=== PATIENT | male | born 1985 | race Caucasian/White ===

== ENCOUNTER 2017-01-25 03:29 | Emergency (ER) | payer BC ==
--- OUTSIDE RECORDS SUMMARY | 2017-01-25 03:32 | XMS | Continuity of Care Document ---
:1985 Author Organization [facility] Care Team Providers Name Role Phone NOLOCAL, PRIMARY Primary Care Physician Unavailable Insurance Providers Payer Name Policy Number Subscriber Name Relationship [facility] [id number] KATHARINA BROTHERS SELF/SAME PATIENT Chief Complaint and Reason for Visit Reason for Visit SORES ON RT WRIST AND RT ADAMS Problems Active Medical Problems Problem Onset Date Recorded Date Status Diarrhea in adult patient Unknown 11/17/13 Active Gastroenteritis Unknown 11/17/13 Active Cellulitis of leg without foot, left Unknown 11/26/13 Active Burn Unknown 11/26/13 Active Sinusitis Unknown 09/10/14 Active Right ear pain Unknown 09/10/14 Active Cellulitis of leg, right Unknown 11/19/15 Active Impetigo Unknown 11/19/15 Active Medications Current Home Medications Medication Dose Units Route Directions Days/Qty Instructions Start Date ACETAMINOPHEN 1 TAB PO EVERY EIGHT 20 11/19/15 W/CODEINE #3 HOURS (TYLENOL #3) 300 NEEDED PRN MG/30 MG TAB PAIN AMOXICILLIN 500 MG PO THREE TIME A 30 09/10/14 TRIHYDRATE DAY() (AMOXICILLIN 500 MG) 500 MG CAP ANTIPYRINE-BENZOCAIN 4 DROP OT EVERY 2 HOURS 1 09/10/14 E PRN EAR PAIN (ANTIPYRINE/BENZOCAI NE 54-14 MG/ML) 4 DROP YUSUF CETIRIZINE HCL 10 MG PO EVERY DAY @ 30 09/10/14 (ZYRTEC 10 MG) 10 MG 0900 TAB Clindamycin HCl 300 MG PO THREE TIME A 10 Days 11/19/15 (CLINDAMYCIN 300 MG DAY(;;) CAP) 300 MG CAP Clindamycin HCl 150 MG PO THREE TIME A 40 TAKE 2 CAPS BID 11/26/13 (Cleocin) 150 MG CAP DAY(;;) FOR [address] 75 MG OR TWICE DAILY 20 11/26/13 (VOLTAREN XR 75 MG NEEDED TAB) 75 MG TAB Lamotrigine (LAMICTAL 25 MG TAB) 25 MG TAB Mupirocin 2% Top 2 % EX TWICE A DAY 7 Days 11/26/13 OINT (BACTROBAN 2% (899; 2099) OINTMENT) 2 % OIN ONDANSETRON HCL 4 MG PO EVERY EIGHT 20 11/19/15 (ONDANSETRON 4 MG HOURS TAB) 4 MG TAB NEEDED PRN NAUSEA/VOMITIN G SULFAMETHOXAZOLE 1 TAB PO TWICE A DAY 10 Days 11/19/15 W/TRIMETHOPRI (899; 2099) (SULFAMETHOXAZOLE/TR IMETHOPRIM DS) 800 MG/160 MG TAB TRAMADOL HCL 100 MG PO EVERY SIX 40 09/10/14 (TRAMADOL HCL 50 MG HOURS TAB) 50 MG TAB NEEDED PRN PAIN Venlafaxine HCL XR 75 MG PO CAP (EFFEXOR XR 75 MG CAP) 75 MG CAP ZOLPIDEM TARTRATE 10 MG PO (AMBIEN) 10 MG TAB Past Home Medications Medication Directions Ordered Status Amoxicillin & Pot Clavulanate TWICE A DAY (899; 2099) 07/05/13 Discontinued (Augmentin 875-125 Mg) 875 Mg Tab Tab, 875 Mg Po Dicyclomine Hcl (Dicyclomine 20 THREE TIMES DAILY NEEDED 11/17/13 Discontinued Mg Tab) 20 Mg Tab Tab, 20 Mg Or Fluticasone 0.05% Inh (Flonase EVERY DAY @ 0900 07/05/13 Discontinued Nasal [place]) 0.05 % Spr Spr, 2 Spr Na Hydrocodone-Acetaminophen AT BEDTIME NEEDED 07/05/13 Discontinued ([place]) 10 Mg/325 Mg Tab Tab, 1 Tab Or Lamotrigine (Lamictal 25 Mg Tab) Unknown Discontinued 25 Mg Tab Tab, 50 Mg Po Mupirocin Calcium 2% Cream TWICE A DAY (899; 2099) 11/26/13 Discontinued (Bactroban 2% Cream) 2 % Cre Cre, 2 % Ex Naproxen (Naproxen 500 Mg Tab) TWICE A DAY (0900; 2100) 07/05/13 Discontinued 500 Mg Tab Tab, 500 Mg Po Prednisone 20 Mg Tab Tab, 20 Mg EVERY DAY @ 0900 For Sinus 07/05/13 Discontinued Or pressure and headache Social History Problem Response Recorded Date Alcohol? Y 11/19/15 Query Response Start Date Stop Date Smoking Status: Never Smoker Hospital Discharge Instructions No hospital discharge instructions. Plan of Care Discharge Date 11/19/15 Disposition HOME/SELF CARE Condition at Discharge STABLE Instructions/Education Provided DI for Cellulitis -- Adult Forms Provided Discharge Form Prescriptions See Medications Section Additional Instructions/Education Take a whole body wash with HIBICLENS twice weekly until lesions healed. Follow up with your primary doctor if symptoms do not improve. Return to ER if symptoms worsen. Functional Status No functional status results. Allergies, Adverse Reactions, Alerts No known allergies. Immunizations No Known History of Immunizations. Vital Signs Vital Reading Collection Date/Time Result Blood Pressure 11/19/15 9:12pm 132/77 Patient Temperature 11/19/15 9:12pm 97.8 Temperature Source 11/19/15 7:59pm Oral Pulse Rate 11/19/15 9:12pm 96 Bedside Pulse Oximetry 11/19/15 9:12pm 96 Height 11/19/15 7:59pm 182.88 cm Height 11/19/15 7:59pm 6 ft 0.00 in Weight 11/19/15 7:59pm 81.647 kg Weight 11/19/15 7:59pm 180 lb 0.00 oz Body Mass Index 11/19/15 7:59pm 24.4 Results [facility] KATHARINA BROTHERS [address] [id number] / [id number] [place], [place] [id number] 30 / M Adm: History of Present Illness General Chief Complaint General Medical (M.ER) Stated Complaint SORES ON RT WRIST AND RT ADAMS Date seen by MD 11/19/15 Time seen by 2002 Source patient History limited by no limitations Reviewed nurses notes, vital signs, home medications, allergies History of Present Illness Initial Comments Shallow skin sores on right forearm, hands and right adams, positive sick contact with a child who had possibly a staph skin infection Timing/Duration 2 days Severity moderate Location extremities Possible Cause possibly a staph skin infection Modifying Factors worse with scratching Associated Symptoms redness and pain, most prominent right adams Allergies Coded Allergies: No Known Drug Allergy (11/19/15) Prescriptions Active Scripts Clindamycin HCl (Cleocin) 150 MG PO TID #40 CAP Prov: 11/26/[address] (VOLTAREN XR 75 MG TAB) 75 MG OR BIDPRN #20 TAB Prov: 11/26/13 Mupirocin 2% Top OINT (BACTROBAN 2% OINTMENT) 2 % EX BID 7 Days Prov: 11/26/13 TRAMADOL HCL (TRAMADOL HCL 50 MG TAB) 100 MG PO Q6HPRN PRN PAIN #40 TAB Prov: 09/10/14 CETIRIZINE HCL (ZYRTEC 10 MG) 10 MG PO DAILY #30 TAB Prov: 09/10/14 AMOXICILLIN TRIHYDRATE (AMOXICILLIN 500 MG) 500 MG PO TID #30 CAP Prov: 09/10/14 ANTIPYRINE-BENZOCAINE (ANTIPYRINE/BENZOCAINE 54-14 MG/ML) 4 DROP OT Q2H PRN EAR PAIN #1 BTL Prov: 09/10/14 Reported Medications Venlafaxine HCL XR CAP (EFFEXOR XR 75 MG CAP) 75 MG PO ZOLPIDEM TARTRATE (AMBIEN) 10 MG PO Lamotrigine (LAMICTAL 25 MG TAB) Discontinued Reported Medications Lamotrigine (LAMICTAL 25 MG TAB) 50 MG PO Review of Systems Constitutional fever Respiratory denies cough, denies shortness of breath Cardiovascular denies chest pain, denies palpitations Gastrointestinal denies abdominal pain, denies nausea, denies vomiting Genitourinary denies dysuria, denies frequency Skin see HPI, rash All Other Systems Reviewed and Negative Past History History unobtainable due to no limitations Past Medical History Past Medical History No: Pertinent medical history. Social History Smoking Status: Never Smoker Physical Exam Physical Exam General Appearance calm, no apparent distress EENT PERRL/EOMI, normal ENT inspection, TMs normal, pharynx normal Neck normal inspection, appropriate ROM, non-tender, neg meningeal signs, supple , no masses Cardiovascular regular rate/rhythm, no edema, no JVD, no murmur/rub/gallop Respiratory lungs clear, normal breath sounds, normal inspection, no respiratory distress Gastrointestinal normal inspection, non-distended, non tender, soft, no organomegaly Back normal inspection, no CVA tenderness, appropriate ROM Extremities non-tender, normal range of motion, normal inspection Neurologic/Psychiatric alert, appropriate mood/affect, no motor/sensory deficits , oriented x 3 Skin Problem Location upper extremities (shallow crusted ulcers-impetig), lower extremities (impetigo,sorrounding celluliti), An area of 6cm diameter sorrounding an impetigo lesion with redness, warm and tender to touch consistent with cellulitis Reviewed and agree with triage nurses notes Progress Progress 1st dose of antibiotics given in ER Vitals Vital Signs Date Time Temp Pulse Resp B/P Pulse O2 O2 Flow FiO2 Ox Delivery Rate 11/19 2111 97.8 96 132/77 96 11/18 1958 97.8 96 132/77 96 Lab and Rad Results& Orders Details of Miscellaneous Nursing Order: Departure Departure Time of Disposition 2039 Disposition HOME/SELF CARE Clinical Impression Primary Impression: Cellulitis of leg, right Secondary Impressions: Impetigo Condition STABLE Patient Instructions DI for Cellulitis -- Adult Additional Instructions Take a whole body wash with HIBICLENS twice weekly until lesions healed. Follow up with your primary doctor if symptoms do not improve. Return to ER if symptoms worsen. Prescriptions Current Visit Scripts Clindamycin HCl (CLINDAMYCIN 300 MG CAP) 300 MG PO TID 10 Days SULFAMETHOXAZOLE W/TRIMETHOPRI (SULFAMETHOXAZOLE/TRIMETHOPRIM DS) 1 TAB PO BID 10 Days ACETAMINOPHEN W/CODEINE #3 (TYLENOL #3) 1 TAB PO Q8HPRN PRN PAIN #20 TAB ONDANSETRON HCL (ONDANSETRON 4 MG TAB) 4 MG PO Q8HPRN PRN NAUSEA/VOMITING #20 TAB Report created by: SLOANE 11/19/152048 Report electronically signed by: JEEVAN GUERRERO 11/21/15 1343<<Signature on File>> Report cosigned by: Procedures No Known History of Procedures. Encounters Encounter Location Arrival/Admit Date Discharge/Depart Date Attending Provider Departed [place] 11/19/15 7:46pm 11/19/15 9:10pm Sherman GUERRERO [facility] Encounter Diagnosis Cellulitis of right lower extremity Impetigo
[2017-01-25] MEDS ORDERED: Oxymetazoline HCl 0.05% ( 15 ML ) ONE (03:51)
[2017-01-25] MEDS ORDERED: diphenhydrAMINE HCl 25 MG CAP ONE (03:51)
[2017-01-25] MEDS ORDERED: Ketorolac Tromethamine 30 MG/ML VIAL ONE (03:51)
== END 2017-01-25 04:12 | disposition home or self-care (01) ==
LOC: ERS 03:29
DX: H65.92 Unspecified nonsuppurative otitis media, left ear (principal); F41.9 Anxiety disorder, unspecified; F31.9 Bipolar disorder, unspecified; F17.220 Nicotine dependence, chewing tobacco, uncomplicated
CPT/HCPCS: 96372; J1885